=== PATIENT | male | born 1985 | race Caucasian/White ===

== ENCOUNTER 2016-05-07 17:55 | Emergency (ER) | payer OTHER ==
[~2016-05-07] VITALS: Ht 195.6 cm; Wt 69.0 kg
[2016-05-07 17:59] VITALS: Ht 195.6 cm; Wt 69.0 kg
[2016-05-07] MEDS ORDERED: TRIA1SPR4 NAE (18:12)
[2016-05-07] MEDS ORDERED: DIPHTHERIA/TETANUS/PERTUSSIS 0.5 ML SYR/VIAL IM. ONE (18:30)
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
[2016-05-07] MEDS ORDERED: OXYCODONE HCL IR 5 MG TAB (IMMEDIATE RELEASE) PO STA (20:19)
[2016-05-07] MEDS ORDERED: IBUPROFEN 600 MG TAB PO STA (20:19)
[2016-05-07] MEDS ORDERED: OXYCODONE IR HOME PACK PO ONE (20:30)
[2016-05-07] MEDS ORDERED: OXYC1TAB3 PO (20:47)
[2016-05-07 21:00] VITALS: BP 128/65; PULSE 77; TEMP 36.7; O2SAT 96
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
== END 2016-05-07 21:06 | disposition home or self-care (01) ==
LOC: C.EDB 17:57 → C.EDC 21:06
DX: S62.92XA Unspecified fracture of left hand, initial encounter for closed fracture (principal); S86.211A Strain of muscle(s) and tendon(s) of anterior muscle group at lower leg level, right leg, initial encounter; T14.8 Other injury of unspecified body region; W22.8XXA Striking against or struck by other objects, initial encounter; M25.531 Pain in right wrist; Z88.0 Allergy status to penicillin; Z88.2 Allergy status to sulfonamides; Z83.3 Family history of diabetes mellitus; Z83.79 Family history of other diseases of the digestive system; Z82.49 Family history of ischemic heart disease and other diseases of the circulatory system; Z84.1 Family history of disorders of kidney and ureter